=== PATIENT | female | born 1985 | race American Indian/Alaskan Native ===

== ENCOUNTER 2016-11-19 22:02 | Inpatient (IN) | payer OTHER ==
[~2016-11-19] VITALS: Ht 170.2 cm; Wt 78.0 kg
[~2016-11-19 22:02] MED LIST: IBUP200T48 PO; OXYC-302 PO
[2016-11-19] MEDS ORDERED: OXYTOCIN 30U/ 0.9% NaCL 500ML 500 ML IV ONE (22:52)
[2016-11-19] MEDS ORDERED: LACTATED RINGERS 1,000 ML IV SCH (22:52)
[2016-11-19] MEDS ORDERED: OXYTOCIN 30U/ 0.9% NaCL 500ML 500 ML IV PRN (22:52)
[2016-11-19] MEDS ORDERED: D5%-LACTATED RINGERS 1,000 ML IV SCH (22:52)
[2016-11-19] MEDS ORDERED: TERBUTALINE 1 MG/ML, 1ML IVPush PRN (23:00)
[2016-11-19] MEDS ORDERED: CALCIUM CARBONATE 500 MG TAB.CHEW PO PRN (23:00)
[2016-11-19] MEDS ORDERED: ONDANSETRON 2MG/ML, 2ML IVPush PRN (23:00)
[2016-11-19] MEDS ORDERED: FENTANYL PF 100 MCG/2ML IV PRN (23:00)
[2016-11-19] MEDS ORDERED: FENTANYL PF 100 MCG/2ML IVPush PRN (23:00)
[2016-11-19 23:04] VITALS: BP 135/79
[2016-11-19] MEDS ORDERED: NEWBORN KIT ONE (23:09)
[2016-11-19] MEDS ORDERED: OXYTOCIN 30U/ 0.9% NaCL 500ML 500 ML ONE (23:09)
[2016-11-20] MEDS ORDERED: LIDOCAINE 1%, 20ML ONE (02:18)
[2016-11-20] MEDS ORDERED: FENTANYL PF 100 MCG/2ML ONE (04:26)
[2016-11-20] MEDS: OXYTOCIN 30U/ 0.9% NaCL 500ML 500 ML IV SCH ×2 (06:16→16:16)
[2016-11-20] MEDS ORDERED: OXYcodone IR 5MG TABLET PO PRN (06:30)
[2016-11-20] MEDS ORDERED: OXYcodone/APAP 5/325MG TABLET PO PRN (06:30)
[2016-11-20] MEDS ORDERED: CALCIUM CARBONATE 500 MG TAB.CHEW PO PRN (06:30)
[2016-11-20] MEDS ORDERED: MEASLES,MUMPS&RUBELLA VACC/PF 0.5 ML SQ PRN (06:30)
[2016-11-20] MEDS ORDERED: MAGNESIUM HYDROXIDE 8%, 30ML UDC PO PRN (06:30)
[2016-11-20] MEDS ORDERED: DIPH,PERTUSS(ACELL),TET VAC/PF NC IM-VACC PRN (06:30)
[2016-11-20] MEDS ORDERED: ONDANSETRON 2MG/ML, 2ML IV PRN (06:30)
[2016-11-20] MEDS ORDERED: MISOPROSTOL 200 MCG TABLET PR PRN (06:30)
[2016-11-20] MEDS ORDERED: RHOGAM FROM BLOOD BANK 1 NOTE EA IM/IV ONE (06:30)
[2016-11-20] MEDS ORDERED: IBUPROFEN 600 MG TABLET ONE (07:19)
[2016-11-20] MEDS: IBUPROFEN 600 MG TABLET PO PRN ×2 (07:22→15:10)
[2016-11-20 08:15] VITALS: BP 125/72
[2016-11-20] MEDS: PRENATAL VIT/IRON/FA 1 EACH TABLET PO SCH (09:00)
[2016-11-20 12:10] VITALS: BP 128/74
[2016-11-20 15:22] VITALS: BP 132/65
[2016-11-20 20:07] VITALS: BP 121/72
[2016-11-20] MEDS: DOCUSATE 100 MG CAPSULE PO PRN (20:27)
[2016-11-20] MEDS ORDERED: IBUP-1222 PO (22:26)
[2016-11-20] MEDS ORDERED: OXYC-302 PO (22:28)
[2016-11-21 00:45] VITALS: BP 117/73
[2016-11-21] MEDS: OXYTOCIN 30U/ 0.9% NaCL 500ML 500 ML IV SCH ×2 (02:16→12:16)
[2016-11-21 04:30] VITALS: BP 117/70
[2016-11-21] MEDS: IBUPROFEN 600 MG TABLET PO PRN (05:45)
[2016-11-21 08:22] VITALS: BP 111/84
[2016-11-21] MEDS: PRENATAL VIT/IRON/FA 1 EACH TABLET PO SCH (08:54)
[2016-11-21] MEDS: DOCUSATE 100 MG CAPSULE PO PRN (08:54)
[2016-11-21] MEDS ORDERED: DOCU-30 PO (13:30)
== END 2016-11-21 15:05 | disposition home or self-care (01) | DRG 775 ==
LOC: LDOP 22:02 → LDIP 23:00 → 2NW 11-20 07:59
PROVIDERS: ADMIT Obstetrics & Gynecology; ATTEND Obstetrics & Gynecology
PROC: 10E0XZZ Delivery of Products of Conception, External Approach (ICD-10-PCS; principal; 2016-11-20)
DX: O99.354 Diseases of the nervous system complicating childbirth (principal); G43.909 Migraine, unspecified, not intractable, without status migrainosus; O69.81X0 Labor and delivery complicated by cord around neck, without compression, not applicable or unspecified; Z37.0 Single live birth; Z3A.39 39 weeks gestation of pregnancy; Z80.3 Family history of malignant neoplasm of breast; Z88.0 Allergy status to penicillin; Z82.49 Family history of ischemic heart disease and other diseases of the circulatory system
CPT/HCPCS: 36415; 82803; 85025; 86850; 86900; J3010; J2590